=== PATIENT | male | born 1975 | race African-American/Black ===

== ENCOUNTER 2017-01-15 09:55 | Emergency (ER) | payer MEDICARE, OTHER ==
[~2017-01-15] VITALS: Ht 167.6 cm; Wt 105.0 kg
[~2017-01-15 09:55] MED LIST: REMERON15 MG PO; RISPERDAL0.5 MG PO; VENTOLIN HFA IN
[2017-01-15] MEDS ORDERED: METFORMIN500 MG PO (10:05)
[2017-01-15 10:37] LABS: HEMATOCRIT 49.9 % (39.0-50.0); HEMOGLOBIN 17.9 g/dl (14.0-18.0); IMMATURE GRANULOCYTES 0.1 % (0.0-1.0); MEAN CELL VOLUME 87.4 fL CALC (80.0-100.0); MEAN CORPUSCULAR HGB 31.3 pG CALC (26.0-32.0); MEAN CORPUSCULAR HGB CONC 35.9 g/L CALC (32.0-36.0); NEUT# 3.77 thou/uL (1.82-7.42); RED BLOOD COUNT 5.71 mill/uL (4.70-6.10)
[2017-01-15 11:17] LABS: ALBUMIN 4.8 g/dL (3.2-5.0); ALKALINE PHOSPHATASE 73 u/l (38-126); AMYLASE 61 u/l (30-110); ANION GAP 19 (6-22 (CALC)); BILIRUBIN, TOTAL 1.3 mg/dL (0.0-1.4); BUN 14 mg/dL (9-20); BUN/CREATININE RATIO 9 (12-20 (CALC)); CALCIUM 9.8 mg/dL (8.4-10.2); CARBON DIOXIDE 27 mmol/l (22-30); CHLORIDE 99 mmol/l (95-108); CREATININE 1.5 mg/dL (0.7-1.3); GFR 51 ML/MIN (>=60 (CALC)); GFR FOR AFR.AMER. > 60 ML/MIN (>=60 (CALC)); GLUCOSE 141 mg/dL (75-110); LIPASE 70 u/l (23-300); POTASSIUM 3.4 mmol/l (3.5-5.1); SGOT/AST 63 u/l (17-59); SGPT/ALT 61 u/l (21-72); SODIUM 141 mmol/l (137-146); TOTAL PROTEIN 9.1 g/dL (6.3-8.2)
[2017-01-15] MEDS ORDERED: METFORMIN500 M1 PO (13:09)
[2017-01-15] MEDS ORDERED: ZOFRAN ODT4 MG PO (13:09)
[2017-01-15] MEDS ORDERED: AMLODIPINE5 MG PO (13:09)
[2017-01-15 13:30] VITALS: BP 130/91
== END 2017-01-15 13:32 | disposition home or self-care (01) ==
LOC: ED 09:55
PROVIDERS: Emergency Medicine
DX: K52.9 Noninfective gastroenteritis and colitis, unspecified (principal); J45.909 Unspecified asthma, uncomplicated; E11.9 Type 2 diabetes mellitus without complications; I10 Essential (primary) hypertension; K44.9 Diaphragmatic hernia without obstruction or gangrene; F17.210 Nicotine dependence, cigarettes, uncomplicated

== ENCOUNTER 2017-08-29 00:42 | Emergency (ER) | payer OTHER ==
[~2017-08-29] VITALS: Ht 167.6 cm; Wt 90.9 kg
[~2017-08-29 00:42] MED LIST changes: +AMLODIPINE5 MG PO; +METFORMIN500 M1 PO; +METFORMIN500 MG PO; +ZOFRAN ODT4 MG PO
[2017-08-29] MEDS ORDERED: PERCOCET 5/325M1 TAB PO (01:09)
[2017-08-29 01:24] VITALS: BP 150/80
== END 2017-08-29 01:30 | disposition home or self-care (01) | DRG 563 ==
LOC: ED 00:42
DX: S93.491A Sprain of other ligament of right ankle, initial encounter (principal); W01.0XXA Fall on same level from slipping, tripping and stumbling without subsequent striking against object, initial encounter; X50.1XXA Overexertion from prolonged static or awkward postures, initial encounter; Y93.H2 Activity, gardening and landscaping; Y92.007 Garden or yard of unspecified non-institutional (private) residence as the place of occurrence of the external cause

== ENCOUNTER 2018-08-27 15:18 | Emergency (ER) | payer MEDICARE, OTHER ==
[~2018-08-27] VITALS: Ht 167.6 cm; Wt 86.1 kg
[~2018-08-27 15:18] MED LIST changes: +PERCOCET 5/325M1 TAB PO
[2018-08-27] MEDS ORDERED: TORADOL PO (17:57)
[2018-08-27 18:09] VITALS: BP 141/89
== END 2018-08-27 18:09 | disposition home or self-care (01) ==
LOC: ED 15:18
DX: S89.82XA Other specified injuries of left lower leg, initial encounter (principal); I10 Essential (primary) hypertension; F17.210 Nicotine dependence, cigarettes, uncomplicated; X50.0XXA Overexertion from strenuous movement or load, initial encounter; Y93.89 Activity, other specified

== ENCOUNTER → 2018-12-29 | Outpatient (REF) | payer MEDICARE, OTHER ==
[~2018-12-29] MED LIST changes: +TORADOL PO
== END | disposition home or self-care (01) ==
LOC: DI 15:00
PROVIDERS: ATTEND Orthopaedic Surgery
DX: M25.562 Pain in left knee (principal)

== ENCOUNTER 2019-01-19 10:04 | Emergency (ER) | payer MEDICARE, OTHER ==
[~2019-01-19] VITALS: Ht 167.6 cm; Wt 86.4 kg
[~2019-01-19 10:04] MED LIST changes: +BACLOFEN20 MG PO; +LISINOP/HCTZ1 TA1 PO; +LYRICA150 M1 PO; +MIRTAZAPINE45 MG PO; +PRILOSEC20 MG PO; +RISPERIDONE M-0.5 MG; +SM ALLERGY50 MCG/ACT
[2019-01-19 10:36] LABS: IMMATURE GRANULOCYTES 0.2 % (0.0-5.0); MEAN CELL VOLUME 91.9 fL CALC (80.0-100.0); MEAN CORPUSCULAR HGB 32.1 pG CALC (26.0-32.0); NEUT# 1.77 thou/uL (1.82-7.42); RED BLOOD COUNT 4.2 mill/uL (4.70-6.10); RED CELL DISTRI WIDTH 14.6 % (11.5-15.5)
[2019-01-19 10:37] LABS: HEMATOCRIT 38.6 % (39.0-50.0); HEMOGLOBIN 13.5 g/dl (14.0-18.0)
[2019-01-19 10:48] LABS: ANION GAP 14 (6-22 (CALC)); BILIRUBIN, TOTAL 2.2 mg/dL (0.0-1.4); BUN 17 mg/dL (9-20); BUN/CREATININE RATIO 15 (12-20 (CALC)); CARBON DIOXIDE 25 mmol/l (22-30); CHLORIDE 101 mmol/l (95-108); CREATININE 1.1 mg/dL (0.7-1.3); ETHYL ALCOHOL 0 mg/dl (0-30); GFR > 60 ML/MIN (>=60 (CALC)); GFR FOR AFR.AMER. > 60 ML/MIN (>=60 (CALC)); LIPASE 73 u/l (23-300); POTASSIUM 3.7 mmol/l (3.5-5.1); SODIUM 138 mmol/l (137-146)
[2019-01-19 11:02] LABS: ALBUMIN 3.5 g/dL (3.2-5.0); SGOT/AST 520 u/l (17-59)
[2019-01-19 11:03] LABS: ALKALINE PHOSPHATASE 180 u/l (38-126)
[2019-01-19 15:02] VITALS: BP 112/74
== END 2019-01-19 15:02 | disposition short-term general hospital (02) ==
LOC: ED 10:04
PROVIDERS: Emergency Medicine
DX: K92.2 Gastrointestinal hemorrhage, unspecified (principal); K70.9 Alcoholic liver disease, unspecified; R10.11 Right upper quadrant pain; R10.13 Epigastric pain; F17.210 Nicotine dependence, cigarettes, uncomplicated; Z72.89 Other problems related to lifestyle
CPT/HCPCS: Q9967; S0164

== ENCOUNTER 2019-03-06 03:16 | Emergency (ER) | payer MEDICARE, OTHER ==
[~2019-03-06] VITALS: Ht 167.6 cm; Wt 81.8 kg
[2019-03-06 04:15] VITALS: BP 147/93
== END 2019-03-06 04:18 | disposition home or self-care (01) ==
LOC: ED 03:16
PROC: 0HQ1XZZ Repair Face Skin, External Approach (ICD-10-PCS; principal; 2019-03-06)
DX: S01.111A Laceration without foreign body of right eyelid and periocular area, initial encounter (principal); S00.531A Contusion of lip, initial encounter; I10 Essential (primary) hypertension; J44.9 Chronic obstructive pulmonary disease, unspecified; F17.200 Nicotine dependence, unspecified, uncomplicated; W22.8XXA Striking against or struck by other objects, initial encounter; Y92.410 Unspecified street and highway as the place of occurrence of the external cause

== ENCOUNTER 2019-08-15 12:46 | Emergency (ER) | payer OTHER, MEDICARE ==
[~2019-08-15] VITALS: Ht 167.6 cm; Wt 113.0 kg
[2019-08-15 13:20] LABS: HEMATOCRIT 36.9 % (39.0-50.0); HEMOGLOBIN 12.5 g/dl (14.0-18.0); IMMATURE GRANULOCYTES 0.4 % (0.0-5.0); MEAN CELL VOLUME 97.9 fL CALC (80.0-100.0); MEAN CORPUSCULAR HGB 33.2 pG CALC (26.0-32.0); MEAN CORPUSCULAR HGB CONC 33.9 g/L CALC (32.0-36.0); NEUT# 2.82 thou/uL (1.82-7.42); RED BLOOD COUNT 3.77 mill/uL (4.70-6.10); RED CELL DISTRI WIDTH 13.6 % (11.5-15.5); URINE BILIRUBIN - DIPSTICK NEGATIVE (NEGATIVE); URINE BLOOD DIPSTICK NEGATIVE (NEGATIVE); URINE COLOR YELLOW; URINE GLUCOSE - DIPSTICK NEGATIVE (NEGATIVE); URINE KETONE NEGATIVE (NEGATIVE); URINE LEUK ESTERASE NEGATIVE (NEGATIVE); URINE NITRITE - DIPSTICK NEGATIVE (Negative); URINE PROTEIN - DIPSTICK NEGATIVE (NEG-TRACE); URINE SPECIFIC GRAVITY >=1.030; URINE UROBILINOGEN - DIPSTICK 0.2 E.U./dL (0.2)
[2019-08-15 13:47] LABS: ALBUMIN 3.7 g/dL (3.2-5.0); ALKALINE PHOSPHATASE 71 u/l (38-126); BUN 12 mg/dL (9-20); BUN/CREATININE RATIO 11 (12-20 (CALC)); CHLORIDE 107 mmol/l (95-108); CREATININE 1.1 mg/dL (0.7-1.3); GFR > 60 ML/MIN (>=60 (CALC)); GFR FOR AFR.AMER. > 60 ML/MIN (>=60 (CALC)); POTASSIUM 3.4 mmol/l (3.5-5.1); SODIUM 137 mmol/l (137-146)
[2019-08-15 13:48] LABS: BARBITURATES NEGATIVE (NEGATIVE); COCAINE POSITIVE (NEGATIVE); METHADONE NEGATIVE (NEGATIVE); OXCYCODONE NEGATIVE (NEGATIVE); TETRAHYDROCANNABIONOL POSITIVE (NEGATIVE); TRICYLIC ANTIDEPRESSANTS NEGATIVE (NEGATIVE)
[2019-08-15 13:55] LABS: ANION GAP 15 (6-22 (CALC)); BILIRUBIN, TOTAL 0.6 mg/dL (0.0-1.4); CARBON DIOXIDE 18 mmol/l (22-30); SGOT/AST 159 u/l (17-59)
[2019-08-15 13:58] LABS: MYOGLOBIN 73 ng/mL (0 - 121)
[2019-08-15 14:31] LABS: ETHYL ALCOHOL 0 mg/dl (0-30); MAGNESIUM 1.9 mg/dL (1.6-2.3)
[2019-08-15 16:55] VITALS: BP 153/80
== END 2019-08-15 17:07 | DRG 897 ==
LOC: ED 12:46
PROVIDERS: Emergency Medicine
PROC: 0T9B70Z Drainage of Bladder with Drainage Device, Via Natural or Artificial Opening (ICD-10-PCS; principal; 2019-08-15)
DX: F19.10 Other psychoactive substance abuse, uncomplicated (principal); I10 Essential (primary) hypertension; J44.9 Chronic obstructive pulmonary disease, unspecified; F17.200 Nicotine dependence, unspecified, uncomplicated
CPT/HCPCS: J2060; Q9967

== ENCOUNTER 2022-03-13 14:47 | Emergency (ER) | payer MEDICARE ==
[~2022-03-13] VITALS: Ht 167.6 cm; Wt 111.0 kg
[2022-03-13 15:16] VITALS: BP 149/105
[2022-03-13] MEDS ORDERED: PREDNISONE20 MG PO (17:44)
[2022-03-13] MEDS ORDERED: CYCLOBENZAPRINE10 MG PO (17:44)
== END 2022-03-13 17:55 | disposition home or self-care (01) ==
LOC: ED 14:47
DX: M54.16 Radiculopathy, lumbar region (principal); I10 Essential (primary) hypertension; J44.9 Chronic obstructive pulmonary disease, unspecified; E78.5 Hyperlipidemia, unspecified; F17.200 Nicotine dependence, unspecified, uncomplicated

== ENCOUNTER 2022-11-13 18:19 | Emergency (ER) | payer MEDICARE, MEDICAID ==
[2022-11-13] VITALS (18 sets, daily range): BP systolic 131–201; BP diastolic 78–137
[~2022-11-13] VITALS: Ht 167.6 cm; Wt 109.1 kg
[~2022-11-13 18:19] MED LIST changes: +CYCLOBENZAPRINE10 MG PO; +PREDNISONE20 MG PO
[2022-11-13] MEDS ORDERED: ATIVAN1 MG PO (19:04)
[2022-11-13] MEDS ORDERED: [UNRECOGNIZED DRUG - OTHER] (19:04)
[2022-11-13 19:05] LABS: BASO% 0.3 % (0-3); EOS% 2.1 % (0-8); HEMATOCRIT 39.1 % (39.0-50.0); HEMOGLOBIN 12.7 g/dl (14.0-18.0); LYMPH% 52.3 % (15-41); MEAN CELL VOLUME 89.7 fL CALC (80.0-100.0); MEAN CORPUSCULAR HGB 29.1 pG CALC (26.0-32.0); MEAN CORPUSCULAR HGB CONC 32.5 g/dL CAL (32.0-36.0); NEUT# 2.46 thou/uL (1.82-7.42); NEUT% 37.3 % (42-76); RED BLOOD COUNT 4.36 mill/uL (4.70-6.10)
[2022-11-13] MEDS ORDERED: ZOLPIDEM TARTRA10 MG PO (19:05)
[2022-11-13] MEDS ORDERED: PANTOPRAZOLE SO40 M1 PO (19:05)
[2022-11-13] MEDS ORDERED: LORAZEPAM0.5 MG PO (19:06)
[2022-11-13 19:17] LABS: ALKALINE PHOSPHATASE 82 u/l (38-126); BILIRUBIN, TOTAL 0.3 mg/dL (0.2-1.3); BUN 11 mg/dL (9-20); BUN/CREATININE RATIO 9 (12-20 (CALC)); CARBON DIOXIDE 27 mmol/l (22-30); CHLORIDE 110 mmol/l (95-108); CREATININE 1.2 mg/dL (0.7-1.3); GFR FOR AFR.AMER. > 60 ML/MIN (>=60 (CALC)); GFR OTHER RACES > 60 ML/MIN (>=60 (CALC)); SODIUM 141 mmol/l (137-146)
[2022-11-13 19:18] LABS: ANION GAP 8 (6-22 (CALC)); ETHYL ALCOHOL 0 mg/dl (0-30); POTASSIUM 3.8 mmol/l (3.5-5.1); SGOT/AST 129 u/l (17-59)
[2022-11-13] MEDS ORDERED: GABAPENTIN300 M2 (19:18)
[2022-11-13] MEDS ORDERED: MIRTAZAPINE15 MG PO (19:18)
[2022-11-13] MEDS ORDERED: RISPERIDONE3 M1 (19:19)
[2022-11-13] MEDS ORDERED: NAPROXEN500 MG PO (19:19)
[2022-11-13] MEDS ORDERED: PERCOCET1 TA4 PO (19:19)
[2022-11-13] MEDS ORDERED: ATORVASTATIN CA80 MG PO (19:20)
[2022-11-13] MEDS ORDERED: HYDROXYZ HCL50 MG PO (19:20)
[2022-11-13] MEDS ORDERED: LISINOPRIL20 M1 PO (19:20)
[2022-11-13] MEDS ORDERED: BUPROPN HCL150 MG PO (19:21)
[2022-11-13] MEDS ORDERED: BUPROPN HCL300 MG PO (19:21)
[2022-11-13] MEDS ORDERED: BENZTROPINE1 MG PO (19:22)
[2022-11-13] MEDS ORDERED: OLANZAPINE5 MG PO (19:22)
[2022-11-13 21:27] LABS: URINE BILIRUBIN - DIPSTICK NEGATIVE (NEGATIVE); URINE BLOOD DIPSTICK NEGATIVE (NEGATIVE); URINE COLOR YELLOW; URINE GLUCOSE - DIPSTICK NEGATIVE (NEGATIVE); URINE KETONE NEGATIVE (NEGATIVE); URINE LEUK ESTERASE NEGATIVE (NEGATIVE); URINE PROTEIN - DIPSTICK NEGATIVE (NEG-TRACE); URINE SPECIFIC GRAVITY >=1.030; URINE UROBILINOGEN - DIPSTICK 0.2 E.U./dL (0.2)
[2022-11-13 21:30] LABS: URINE NITRITE - DIPSTICK NEGATIVE (Negative)
[2022-11-13 23:25] LABS: MAGNESIUM 2.2 mg/dL (1.6-2.3)
[2022-11-14 00:09] VITALS: BP 150/90
== END 2022-11-14 00:27 | disposition home or self-care (01) ==
LOC: ED 18:19
PROVIDERS: Emergency Medicine
DX: R41.82 Altered mental status, unspecified (principal); T42.4X5A Adverse effect of benzodiazepines, initial encounter; F19.10 Other psychoactive substance abuse, uncomplicated; I10 Essential (primary) hypertension; J44.9 Chronic obstructive pulmonary disease, unspecified; E78.5 Hyperlipidemia, unspecified; F17.200 Nicotine dependence, unspecified, uncomplicated

== ENCOUNTER 2022-12-06 15:14 | Emergency (ER) | payer MEDICARE, MEDICAID ==
[2022-12-06] VITALS (8 sets, daily range): BP systolic 132–149; BP diastolic 92–108
[~2022-12-06] VITALS: Ht 167.6 cm; Wt 125.0 kg
[~2022-12-06 15:14] MED LIST changes: +ATIVAN1 MG PO; +ATORVASTATIN CA80 MG PO; +BENZTROPINE1 MG PO; +BUPROPN HCL150 MG PO; +BUPROPN HCL300 MG PO; +GABAPENTIN300 M2; +HYDROXYZ HCL50 MG PO; +LISINOPRIL20 M1 PO; +LORAZEPAM0.5 MG PO; +MIRTAZAPINE15 MG PO; +NAPROXEN500 MG PO; +OLANZAPINE5 MG PO; +PANTOPRAZOLE SO40 M1 PO; +PERCOCET1 TA4 PO; +RISPERIDONE3 M1; +ZOLPIDEM TARTRA10 MG PO; +[UNRECOGNIZED DRUG - OTHER]
[2022-12-06 16:25] LABS: BASO% 0.4 % (0-3); EOS% 2.1 % (0-8); HEMOGLOBIN 11.3 g/dl (14.0-18.0); IMMATURE GRANULOCYTES 0.1 % (0.0-5.0); LYMPH% 49.9 % (15-41); MEAN CELL VOLUME 86.6 fL CALC (80.0-100.0); MEAN CORPUSCULAR HGB CONC 32.3 g/dL CAL (32.0-36.0); MONO% 9.4 % (2-13); NEUT# 2.55 thou/uL (1.82-7.42); NEUT% 38.1 % (42-76); RED BLOOD COUNT 4.04 mill/uL (4.70-6.10); RED CELL DISTRI WIDTH 13.2 % (11.5-15.5)
[2022-12-06 16:37] LABS: INTERNATIONAL NORMALIZED RATIO 1.1 RATIO (0.7-1.3); PROTHROMBIN TIME 10.5 SECONDS (9.0-12.5)
[2022-12-06 16:40] LABS: ALBUMIN 3.6 g/dL (3.2-5.0); ALKALINE PHOSPHATASE 69 u/l (38-126); ANION GAP 8 (6-22 (CALC)); BILIRUBIN, TOTAL 0.4 mg/dL (0.2-1.3); BUN 16 mg/dL (9-20); BUN/CREATININE RATIO 16 (12-20 (CALC)); CARBON DIOXIDE 28 mmol/l (22-30); CHLORIDE 106 mmol/l (95-108); ETHYL ALCOHOL 45 mg/dl (0-30); GFR FOR AFR.AMER. > 60 ML/MIN (>=60 (CALC)); GFR OTHER RACES > 60 ML/MIN (>=60 (CALC)); POTASSIUM 3.8 mmol/l (3.5-5.1); SGOT/AST 34 u/l (17-59); SODIUM 139 mmol/l (137-146); TOTAL PROTEIN 6.3 g/dL (6.3-8.2)
== END 2022-12-06 18:10 | disposition home or self-care (01) ==
LOC: ED 15:14
PROVIDERS: Emergency Medicine
DX: R53.83 Other fatigue (principal); I10 Essential (primary) hypertension; J44.9 Chronic obstructive pulmonary disease, unspecified; E78.5 Hyperlipidemia, unspecified; M54.9 Dorsalgia, unspecified; M25.569 Pain in unspecified knee; G89.29 Other chronic pain; F17.200 Nicotine dependence, unspecified, uncomplicated

== ENCOUNTER → 2022-12-09 | Emergency (ER) | payer MEDICARE, MEDICAID | END | disposition left against medical advice (07) | LOC: ED 14:25 | DX: Z53.21 Procedure and treatment not carried out due to patient leaving prior to being seen by health care provider (principal) ==

== ENCOUNTER 2023-01-18 08:15 | Observation (INO) | payer MEDICARE, MEDICAID ==
[2023-01-18] VITALS (45 sets, daily range): BP systolic 99–183; BP diastolic 74–115
[~2023-01-18] VITALS: Ht 167.6 cm; Wt 116.0 kg
[2023-01-18 08:49] LABS: BASO% 0.6 % (0-3); HEMATOCRIT 36.9 % (39.0-50.0); HEMOGLOBIN 12.1 g/dl (14.0-18.0); IMMATURE GRANULOCYTES 0.2 % (0.0-5.0); LYMPH% 21.4 % (15-41); MEAN CELL VOLUME 86.6 fL CALC (80.0-100.0); MEAN CORPUSCULAR HGB 28.4 pG CALC (26.0-32.0); MEAN CORPUSCULAR HGB CONC 32.8 g/dL CAL (32.0-36.0); MONO% 8.3 % (2-13); NEUT# 6.05 thou/uL (1.82-7.42); NEUT% 69.5 % (42-76); RED BLOOD COUNT 4.26 mill/uL (4.70-6.10); RED CELL DISTRI WIDTH 14.9 % (11.5-15.5)
[2023-01-18 09:02] LABS: ALBUMIN 4.3 g/dL (3.2-5.0); ALKALINE PHOSPHATASE 63 u/l (38-126); BUN 17 mg/dL (9-20); BUN/CREATININE RATIO 15 (12-20 (CALC)); CHLORIDE 107 mmol/l (95-108); CREATININE 1.1 mg/dL (0.7-1.3); GFR FOR AFR.AMER. > 60 ML/MIN (>=60 (CALC)); GFR OTHER RACES > 60 ML/MIN (>=60 (CALC)); INTERNATIONAL NORMALIZED RATIO 1.1 RATIO (0.7-1.3); POTASSIUM 4.2 mmol/l (3.5-5.1); PROTHROMBIN TIME 11.2 SECONDS (9.0-12.5); SGOT/AST 44 u/l (17-59); SODIUM 138 mmol/l (137-146); TOTAL PROTEIN 7.2 g/dL (6.3-8.2)
[2023-01-18 09:05] LABS: ANION GAP 14 (6-22 (CALC)); BILIRUBIN, TOTAL 0.9 mg/dL (0.2-1.3); CARBON DIOXIDE 21 mmol/l (22-30)
[2023-01-18 10:39] LABS: URINE BILIRUBIN - DIPSTICK NEGATIVE (NEGATIVE); URINE BLOOD DIPSTICK NEGATIVE (NEGATIVE); URINE COLOR YELLOW; URINE GLUCOSE - DIPSTICK NEGATIVE (NEGATIVE); URINE KETONE NEGATIVE (NEGATIVE); URINE LEUK ESTERASE NEGATIVE (NEGATIVE); URINE PROTEIN - DIPSTICK NEGATIVE (NEG-TRACE); URINE UROBILINOGEN - DIPSTICK 0.2 E.U./dL (0.2)
[2023-01-18 10:41] LABS: URINE NITRITE - DIPSTICK NEGATIVE (Negative)
[2023-01-19] VITALS (10 sets, daily range): BP systolic 139–172; BP diastolic 84–117
[2023-01-19 05:22] LABS: BASO% 0.5 % (0-3); EOS% 1.1 % (0-8); HEMATOCRIT 32.8 % (39.0-50.0); HEMOGLOBIN 10.8 g/dl (14.0-18.0); MEAN CORPUSCULAR HGB 28.6 pG CALC (26.0-32.0); MEAN CORPUSCULAR HGB CONC 32.9 g/dL CAL (32.0-36.0); MONO% 9.6 % (2-13); NEUT# 2.56 thou/uL (1.82-7.42); NEUT% 44.8 % (42-76); RED BLOOD COUNT 3.77 mill/uL (4.70-6.10); RED CELL DISTRI WIDTH 14.6 % (11.5-15.5)
[2023-01-19 05:49] LABS: ALBUMIN 3.6 g/dL (3.2-5.0); ALKALINE PHOSPHATASE 64 u/l (38-126); BILIRUBIN, TOTAL 0.7 mg/dL (0.2-1.3); BUN 12 mg/dL (9-20); BUN/CREATININE RATIO 10 (12-20 (CALC)); CHLORIDE 109 mmol/l (95-108); CREATININE 1.1 mg/dL (0.7-1.3); GFR FOR AFR.AMER. > 60 ML/MIN (>=60 (CALC)); GFR OTHER RACES > 60 ML/MIN (>=60 (CALC)); SGOT/AST 46 u/l (17-59); SODIUM 139 mmol/l (137-146); TOTAL PROTEIN 6.1 g/dL (6.3-8.2)
[2023-01-19 05:52] LABS: ANION GAP 6 (6-22 (CALC)); CARBON DIOXIDE 27 mmol/l (22-30); POTASSIUM 3.1 mmol/l (3.5-5.1)
[2023-01-19] MEDS ORDERED: BUPROPION HCL150 MG PO ×2 (09:50)
[2023-01-19] MEDS ORDERED: LISINOPRIL20 M1 PO (09:50)
[2023-01-19] MEDS ORDERED: ATORVASTATIN CA40 MG PO (09:50)
[2023-01-19] MEDS ORDERED: GABAPENTIN300 M2 PO (09:50)
[2023-01-19] MEDS ORDERED: MIRTAZAPINE15 MG PO (09:50)
[2023-01-19] MEDS ORDERED: HYDROXYZINE PAM25 MG PO (09:51)
[2023-01-19] MEDS ORDERED: RISPERIDONE2 M1 PO (09:51)
[2023-01-19] MEDS ORDERED: PANTOPRAZOLE SO40 M1 PO (09:51)
[2023-01-19 12:42] LABS: CHOLESTEROL HDL RATIO 2.2 (<4.4 (CALC))
== END 2023-01-19 11:50 | disposition home or self-care (01) ==
LOC: ED 08:15 → ED-I 08:34 → ED 08:34 → ED-I 10:55 → ED 11:01 → ICU 11:02
PROVIDERS: Family Medicine; Psychiatry & Neurology Neurology; ADMIT Internal Medicine; ATTEND Internal Medicine
DX: G93.40 Encephalopathy, unspecified (principal); R53.1 Weakness; R20.0 Anesthesia of skin; R47.81 Slurred speech; R07.9 Chest pain, unspecified; I10 Essential (primary) hypertension; J44.9 Chronic obstructive pulmonary disease, unspecified; E78.5 Hyperlipidemia, unspecified; F17.200 Nicotine dependence, unspecified, uncomplicated; K21.9 Gastro-esophageal reflux disease without esophagitis; M19.90 Unspecified osteoarthritis, unspecified site
CPT/HCPCS: A9579; J2060; Q9967